=== PATIENT | female | born 1955 | race Caucasian/White ===

== ENCOUNTER 2017-06-23 14:57 | Emergency (ER) | payer MEDICARE ==
[~2017-06-23] VITALS: Ht 154.9 cm; Wt 60.8 kg
--- NOTE | ~2017-06-23 | CT4 ---
[facility] A Service of [facility] & [facility] RADIOLOGY TEXT RESULTS PATIENT: HILARIO SHARP LOCATION: [facility] : 53 UNIT #: [id number] AGE: [address]: Moncho Eaton MD SEX: F ORDER DR: [id number] [facility] [address] [place], [place] [address] [id number] MR#: [id number] Acc #: [id number] NAME: HILARIO SHARP : 1955 SEX: F STUDY DATE/TIME: 06/23/2017 UNIT: [facility] ROOM: STUDY DESCRIPTION: CT Abd and Pelv Wo Cont Attending Physician: Moncho Eaton M.D. Ordering Physician: Moncho Eaton M.D. Primary Care Physician: Rhonda Smalls M.D. MEDICAL IMAGING REPORT This report is preliminary unless electronic signature is present EXAM Abdomen and pelvis CT 06/23 at 1821 hours INDICATIONS Right-side low back pain with dysuria for 1 week. TECHNIQUE Axial images were obtained through the abdomen and pelvis without contrast. Multiplanar reformats were obtained. This CT exam was performed with one or more of the following radiation dose reduction techniques: automatic exposure control, adjustment of mA and/or kV according to patient size, and iterative reconstruction. COMPARISON STUDIES 08/30/2016. FINDINGS ABDOMEN: There is some dependent atelectasis in both lung bases. Gallbladder contains a small stone, in addition to some sludge. There is fatty infiltration of the liver. There is a stable 1.7-1.8 cm left adrenal adenoma. No renal or ureteral stones are seen. There is no hydronephrosis. The unenhanced solid organs are otherwise normal. No free fluid or adenopathy is seen. There is some atherosclerotic disease, but there is no aortic aneurysm. Unopacified GI tract is normal. PELVIS: The appendix is normal. There is sigmoid diverticulosis, but no diverticulitis is seen. The GI tract is otherwise unremarkable. There are no lower ureteral stones. The bladder is normal. Uterus is surgically absent. There is degenerative disease in the lumbar spine, particularly at L5-S1. STS. [facility] A Service of [facility] & [facility] RADIOLOGY TEXT RESULTS PATIENT: HILARIO SHARP LOCATION: [facility] #: [id number] : 53 UNIT #: [id number] AGE: [address]: Moncho Eaton MD SEX: F ORDER DR: IMPRESSION 1. No acute findings in the abdomen or pelvis. 2. No renal or ureteral stones. No hydronephrosis. 3. Small gallstone with some gallbladder sludge. 4. Fatty liver. 5. Stable left adrenal adenoma. 6. Sigmoid diverticulosis without diverticulitis. Normal appendix. 7. Hysterectomy. Dictated by... Efrain Soto Jr., M.D. THIS IS AN ELECTRONICALLY VERIFIED REPORT Efrain Soto Jr., M.D. at 06/24/2017 4:12 PM CLARISA/herminio TD: 06/23/2017 23:32 JOB #: [id number] MEDICAL IMAGING REPORT Page 1 of 1 COPY
[~2017-06-23 14:57] MED LIST: ACID REDUCER150 MG PO; ALEVE220 M1 PO; ALLOPURINOL300 MG PO; ATENOLOL PO; DESYREL100 MG; DOCUSATE SODIU100 MG; EXELON1 EACH TD; K-DUR20 ME1 DOB; KCL PO; LINZESS145 MCG PO; LIPITOR PO; MAXZIDE 75/50 T1 TAB PO; MEDROL PO; MEVACOR PO; MOBIC PO; NAPROXEN PO; TENORMIN50 MG PO; TRAZODONE PO; TRIAMTERENE-HC1 EACH PO; VICODIN 5/500 T1 TAB PO; ZANTAC PO; ZOLOFT PO; ZOLOFT100 MG PO; ZYLOPRIM PO
[2017-06-23 16:16] LABS: URINE SOURCE CLEAN CATCH
[2017-06-23 16:22] LABS: URINE APPEARANCE TURBID; URINE BILIRUBIN NEG (NEG); URINE BLOOD NEG (NEG); URINE COLOR YELLOW; URINE GLUCOSE NEG (NEG); URINE KETONE NEG (NEG); URINE LEUKOCYTE ESTERASE 1+ (NEG); URINE NITRATE NEG (NEG); URINE PROTEIN NEG (NEG); URINE SPECIFIC GRAVITY 1.014 (1.003-1.035)
[2017-06-23 16:27] LABS: CULTURE INDICATED? YES; URINE BACTERIA AUWI 1+ (NEGATIVE); URINE SQUAMOUS EPITHELIAL CELL FEW /[HPF]
[2017-06-23 18:09] LABS: BASOPHIL# 0.1 X10e3 (0-0.3); BASOPHIL% 0.5 % (0-2.5); EOSINOPHIL% 0.3 % (0.0-7.0); HEMATOCRIT 40.2 % (35.0-45.0); HEMOGLOBIN 13.7 gm/dL (12.0-16.0); LYMPHOCYTE# 2.7 X10e3 (1.0-3.5); LYMPHOCYTE% 19.1 % (17.0-45.0); MEAN CELL VOLUME 98.1 FL (83-96); MEAN CORPUSCULAR HEMOGLOBIN 33.4 PG (28-34); MEAN CORPUSCULAR HGB CONC 34.1 g/dL (30-36); MEAN PLATELET VOLUME 6.9 FL (6.5-11.5); MONOCYTE# 1.8 X10e3 (0-1.0); MONOCYTE% 12.6 % (3.0-12.0); NEUTROPHIL# 9.6 X10e3 (1.5-7.1); NEUTROPHIL% 67.5 % (40-75); PLATELET COUNT 191 X10e3 (140-420); RED CELL DISTRIBUTION WIDTH 14.2 % (11.0-15.5); WHITE BLOOD COUNT 14.2 X10e3 (4.0-10.5)
[2017-06-23 18:14] LABS: DIFF IND NO
[2017-06-23 18:36] LABS: ALBUMIN SERUM 3.6 g/dL (3.5-5.0); BILIRUBIN,TOTAL 0.4 mg/dL (0.2-2.0); CALCIUM SERUM 9.3 mg/dL (8.4-10.2); GLOM FILT RATE Estimated 59.9 mL/min (>60); POTASSIUM 3.1 mmol/L (3.5-5.1)
== END 2017-06-23 19:55 | disposition home or self-care (01) ==
LOC: CED 14:57
PROVIDERS: Emergency Medicine
DX: R10.9 Unspecified abdominal pain (principal); R30.0 Dysuria; Z91.041 Radiographic dye allergy status; E11.9 Type 2 diabetes mellitus without complications; I10 Essential (primary) hypertension; Z90.710 Acquired absence of both cervix and uterus; F17.200 Nicotine dependence, unspecified, uncomplicated
CPT/HCPCS: 36415; 74176; 80053; 81003; 83690; 85025; 87086; 96365; 96375; 99284; J0696; J2270

== ENCOUNTER 2017-06-27 01:33 | Inpatient (IN) | payer MEDICARE ==
[~2017-06-27] VITALS: Ht 154.9 cm; Wt 60.8 kg
--- NOTE | ~2017-06-27 | CO ---
Unit #: [id number] #: [id number] Patient: HILARIO SHARP [id number] [facility] [address] [place], [place] [address] [id number] I MR#: [id number] NAME: HILARIO SHARP ROOM: 230 Age: 61 Sex: F Admission Date: 06/27/2017 : 1955 Attending Physician: Josef Sumner M.D. Primary Care Physician: Rhonda Smalls M.D. Consultation Date: 07/03/2017 CONSULTATION REPORT DISCUSSION Miss Hilario Sharp is a 61-year-old female seen on 07/03/17 at [facility] in room 230, bed 1. Patient dressed casually, hygiene and grooming fair. Patient and her were at the bedside. The patient's also reported the patient is doing much better. Improved memory, depression, anxiety; able to talk more coherently, voices some paranoia and anxiety residual symptoms; denies any suicidal or homicidal ideation. REVIEW OF SYSTEMS Unremarkable. PHYSICAL EXAMINATION VITAL SIGNS: Temperature 98.7, pulse 81, respirations 20, blood pressure 127/74, oxygen saturation 94%. MENTAL STATUS EXAMINATION General appearance, patient dressed casually in hospital attire. Attention span and concentration fair. Speech slow in volume and rate but coherent. Oriented in time, place and person. Mood and affect sad, dysphoric. Thought process coherent. Thought content, the patient denied any thoughts of harming self or others but some paranoia. Recent and remote memory fair. Language, fair. Fund of knowledge fair. Insight and judgment fair to slightly impaired. DIAGNOSES PSYCHIATRIC: Major depressive disorder, recurrent, severe, with psychotic features. ASSESSMENT AND PLAN 1. Supportive psychotherapy and psychoeducation provided to patient. 2. Educated about benefits and side effects of medication and course and prognosis of illness. 3. Advised to continue with the current combination of medication and make further adjustment of medication if needed. Please feel free to call if any question. Telephone number [phone]. Dictated by... Unit #: [id number] #: [id number] Patient: HILARIO SHARP Denny Win/aron TD: 07/03/2017 17:49 JOB #: [id number] CONSULTATION REPORT Page 1 of 1 X Agustín Hu MD CONSULTATION REPORT
--- NOTE | ~2017-06-27 | CO ---
Unit #: [id number] #: [id number] Patient: HILARIO SHARP [id number] [facility] [address] [place], [place] [address] [id number] I MR#: [id number] NAME: HILARIO SHARP ROOM: 230 Age: 61 Sex: F Admission Date: 06/27/2017 : 1955 Attending Physician: Josef Sumner M.D. Primary Care Physician: Rhonda Smalls M.D. Consultation Date: 06/30/2017 CONSULTATION REPORT REASON FOR CONSULTATION Followup discussion. HISTORY OF PRESENT ILLNESS Ms. Hilario Sharp is a 61-year-old white female, seen in room 230, bed [address] [facility]. The patient was sitting comfortably in chair, staring at her food, very confused, guarded and paranoid, able to answer some questions. The patient's was sitting at the bedside. The patient was dressed casually. The patient is taking long time to answer question, seems anxious, nervous, guarded, paranoid, delusional. The patient denied any thoughts of harming self or others. The patient did not show any agitation, but anxiety, paranoia. REVIEW OF SYSTEMS Complete review of systems is unremarkable except as mentioned above. MENTAL STATUS EXAMINATION VITAL SIGNS: Temperature 98.0, pulse 84, respirations 18, blood pressure 123/62, oxygen saturation 97%. GENERAL APPEARANCE: The patient is dressed casually in hospital attire, sitting comfortably in chair, seem anxious, nervous, guarded and paranoid. The patient's attention span and concentration, fair to poor. Speech, slow in volume with long pauses. Oriented in self and place. Mood and affect; sad, dysphoric, flat. Thought process, circumstantial. Thought content; guarded, paranoid, delusional. Recent and remote memory, fair to slightly impaired. Language, fair. Fund of knowledge, fair. Insight and judgment, fair to slightly impaired. DIAGNOSES Psychiatric: Major depressive disorder, recurrent, severe, with psychotic feature, F33.3; psychosis, not otherwise specified, F29.0; rule out major neurocognitive disorder secondary to Alzheimer disease without behavioral disturbances, F02.80. ASSESSMENT/PLAN 1. Supportive psychotherapy and psychoeducation were provided to the patient. 2. Educated about benefits and side effects of medication and course and prognosis of illness. 3. Advised to continue with current medication with a plan to add Haldol 2 mg b.i.d. and Remeron 15 mg at bedtime. Decrease trazodone to 100 mg at bedtime as trazodone and Remeron will both cause sedation. Advise one time dose of Haldol 2 mg and Ativan 0.5 mg now. They will continue to follow. Please feel free to call if any questions. Telephone number is Unit #: [id number] #: [id number] Patient: HILARIO SHARP [phone]. Dictated by... Denny Win/mabel TD: 07/03/2017 00:39 JOB #: [id number] CONSULTATION REPORT Page 1 of 1 X Agustín Hu MD X CONSULTATION REPORT
--- NOTE | ~2017-06-27 | CO ---
Unit #: [id number] #: [id number] Patient: HILARIO SHARP [id number] [address] [place], [place] [address] [id number] I MR#: [id number] NAME: HILAROI SHARP ROOM: 230 Age: 61 Sex: F Admission Date: 06/27/2017 : 1955 Attending Physician: Josef Sumner M.D. Primary Care Physician: Rhonda Smalls M.D. Consultation Date: 07/01/2017 CONSULTATION REPORT REASON FOR CONSULTATION Followup. DISCUSSION Ms. Hilario Sharp is a 61-year-old white female, seen in room 230, bed 1 on 07/01/2017. The patient dressed casually in hospital attire, sitting comfortably in chair, and made good eye contact. Reports feeling better. Able to carry out a spontaneous conversation, alert, oriented. Affect bright, smiling. Decrease in anxiety. No side effects from medication. The patient's vital signs; temperature 98.0, heart rate 78, respirations 16, blood pressure 125/70, and oxygen saturation 98%. The patient denied any current suicidal or homicidal ideation. REVIEW OF SYSTEMS Complete review of system is unremarkable. MENTAL STATUS EXAMINATION General appearance, the patient dressed casually. Attention span and concentration, fair. Speech, regular rate and coherent. Oriented in time, place, and person. Mood and affect were brighter. Thought process, coherent. Thought content, the patient denied any thoughts of harming self or others, but somewhat anxious and nervous. Denied any hallucination. Recent and remote memory, fair. Language, intact. Fund of knowledge, fair. Insight and judgment, fair to slightly impaired. DIAGNOSES Psychiatric: Major depressive disorder, recurrent, severe, F33.2; psychosis, F29.0, resolved; considering diagnosis of dementia versus pseudodementia. ASSESSMENT/PLAN 1. Supportive psychotherapy and psychoeducation provided to the patient. 2. Educated about benefits and side effects of medication and course and prognosis of illness. 3. Advised to continue with current medication. We will continue to follow and make further adjustment of medication if needed. Please feel free to call if any questions, telephone #[phone]. Dictated by... Agustín Hu M.D. [facility]/mabel Unit #: [id number] #: [id number] Patient: HILARIO SHARP TD: 07/03/2017 00:24 JOB #: [id number] CONSULTATION REPORT Page 1 of 1 X Agustín Hu MD CONSULTATION REPORT
--- NOTE | ~2017-06-27 | CR72 ---
[facility] A Service of [facility] & [facility] RADIOLOGY TEXT RESULTS PATIENT: HILARIO SHARP LOCATION: [facility] : 53 UNIT #: [id number] AGE: [address]: Christie Blackmon MD SEX: F ORDER DR: [id number] [facility] [address] [place], [place] [address] [id number] I MR#: [id number] Acc #: [id number] NAME: HILARIO SHARP : 1955 SEX: F STUDY DATE/TIME: 06/27/2017 2:30 UNIT: CEDOF ROOM: 83083 STUDY DESCRIPTION: CR Chest Single View Portable Attending Physician: Christie Blackmon M.D. Ordering Physician: Bro Vernon M.D. Primary Care Physician: Rhonda Smalls M.D. MEDICAL IMAGING REPORT This report is preliminary unless electronic signature is present EXAM Chest x-ray, 06/27/2017. HISTORY 61-year-old female in the ED with a 1-day history of shortness of air. Confusion/mental status changes. TECHNIQUE AP portable upright chest x-ray. FINDINGS Shallow lung expansion. The lungs appear clear. No visible pulmonary infiltrate or pleural effusion. Heart size is within normal limits. No change since 06/09/2012. IMPRESSION No active disease. Dictated by... Fareed Interiano M.D. THIS IS AN ELECTRONICALLY VERIFIED REPORT Fareed Interiano M.D. at 06/27/2017 10:00 PM IONW/lee TD: 06/27/2017 12:32 JOB #: [id number] MEDICAL IMAGING REPORT Page 1 of 1 COPY
--- NOTE | ~2017-06-27 | DS ---
Unit #: [id number] #: [id number] Patient: HILARIO SHARP [id number] [address] [address] [id number] I MR#: [id number] NAME: HILARIO SHARP ROOM: 230 Age: 61 Sex: F Admission Date: 06/27/2017 : 1955 Discharge Date: 07/04/2017 Attending Physician: Josef Sumner M.D. Primary Care Physician: Rhonda Smalls M.D. DISCHARGE SUMMARY PERTINENT HISTORY AND HOSPITAL COURSE The patient is a 61-year-old woman, who presented with symptoms of increasing agitation and confusion, which progressively worsened over the past three weeks while at home. On the day of admission, the patient apparently tried to walk out of the house, got into an argument with her son and . The police were called due to the agitation and combativeness. During her admission, the patient had a psychiatry consultation and her medication dosages were adjusted. Following which, the patient's agitation resolved. During her admission, the patient also was noted to have a low potassium. After potassium replacement, her potassium level was I normal range and remained in normal range. DISCHARGE DIAGNOSES 1. Acute agitation, confusion, and combative behavior. 2. Dementia. 3. Hypokalemia. DISCHARGE MEDICATIONS 1. Remeron 15 mg p.o. at bedtime. 2. Trazodone 100 mg p.o. at bedtime. 3. Haloperidol 2 mg p.o. twice daily. 4. Atenolol 25 mg p.o. once daily. 5. Lovastatin 40 mg p.o. at bedtime. 6. Ranitidine 150 mg p.o. twice daily. 7. Allopurinol 300 mg p.o. twice daily. DISCHARGE INSTRUCTIONS 1. The patient will be discharged home with home health services. 2. The patient is to follow up with primary care physician. Dictated by... Denny Wolf/giuliana TD: 07/05/2017 14:37 JOB #: [id number] Unit #: [id number] #: [id number] Patient: HILARIO SHARP DISCHARGE SUMMARY Page 1 of 1 X X DISCHARGE SUMMARY
--- NOTE | ~2017-06-27 | CT71 ---
[facility] A Service of [facility] RADIOLOGY TEXT RESULTS PATIENT: HILARIO SHARP LOCATION: [facility] 230-01 : 53 UNIT #: [id number] AGE: [address]: Christie Blackmon MD SEX: F ORDER DR: [id number] [place] [id number] [facility]. [place], [place] [address] [id number] I MR#: [id number] Acc #: [id number] NAME: HILARIO SHARP : 1955 SEX: F STUDY DATE/TIME: 06/27/2017 3:45 UNIT: CEDOF ROOM: 92661 STUDY DESCRIPTION: CT Head Wo Contrast Attending Physician: Christie Blackmon M.D. Ordering Physician: Bro Vernon M.D. Primary Care Physician: Rhonda Smalls M.D. MEDICAL IMAGING REPORT This report is preliminary unless electronic signature is present EXAM CT head, noncontrast, 06/27/2017. HISTORY 61-year-old female in the ED with confusion/mental status changes beginning earlier today. TECHNIQUE CT examination of the head was performed without IV contrast. This CT exam was performed with one or more of the following radiation dose reduction techniques: automatic exposure control, adjustment of mA and/or kV according to patient size, and iterative reconstruction. FINDINGS No acute intracranial abnormality is identified. Moderate patchy low-attenuation white matter changes are nonspecific, but likely related to chronic small vessel disease. Old lacunar infarct in the left thalamus. These findings are unchanged since 06/09/2012. No evidence of intracranial hemorrhage, mass, mass effect, acute cerebral edema or hydrocephalus. IMPRESSION 1. No acute intracranial abnormality. 2. Stable diffuse chronic changes as noted above. 3. No significant change since 06/09/2012. Dictated by... Fareed Interiano M.D. THIS IS AN ELECTRONICALLY VERIFIED REPORT Fareed Interiano M.D. at 06/27/2017 10:01 PM [facility] A Service of [facility] RADIOLOGY TEXT RESULTS PATIENT: HILARIO SHARP LOCATION: [facility] 230-01 : 53 UNIT #: [id number] AGE: [address]: Christie Blackmon MD SEX: F ORDER DR: Juan Carlos TD: 06/27/2017 12:34 JOB #: [id number] MEDICAL IMAGING REPORT Page 1 of 1 COPY
--- NOTE | ~2017-06-27 | HP ---
Unit #: [id number] #: [id number] Patient: HILARIO SHARP [id number] [address] [place], [place] [address] [id number] I MR#: [id number] NAME: HILARIO SHARP ROOM: 230 Age: 61 Sex: F Admission Date: 06/27/2017 : 1955 Attending Physician: Christie Blackmon M.D. Primary Care Physician: Rhonda Smalls M.D. HISTORY AND PHYSICAL HISTORY OF PRESENT ILLNESS The patient is a 61-year-old woman who developed symptoms of increasing agitation and confusion which have progressively worsened over the past three weeks. Last night, the patient tried to walk out of the house in the middle of the night. The patient's called the police, and the patient was subsequently brought to the emergency room where she was given Geodon for her agitation. PAST MEDICAL HISTORY 1. Hypertension. 2. Hyperlipidemia. 3. Gastroesophageal reflux. 4. Insomnia. 5. Depression. 6. Gout. ALLERGIES IV dye. MEDICATIONS 1. Atenolol 50 mg daily. 2. Ranitidine 300 mg p.o. b.i.d. 3. Trazodone 150 mg at bedtime. 4. Zoloft 100 mg daily. 5. Allopurinol 300 mg daily. 6. Lovastatin 20 mg daily. 7. Meloxicam 7.5 mg daily. SOCIAL HISTORY Smokes two packs a day. No alcohol or drug use. FAMILY HISTORY Father of colon cancer. Sister had breast cancer. REVIEW OF SYSTEMS As per HPI. The rest of the review of systems is negative. PHYSICAL EXAMINATION GENERAL: An elderly-appearing woman in no acute distress. HEENT: Normocephalic and atraumatic. Extraocular movements intact. Pupils equal, round, and reactive. Nose and throat are within normal limits. NECK: Supple. No JVD. CARDIAC: S1 and S2, regular rate and rhythm. Unit #: [id number] #: [id number] Patient: HILARIO SHARP LUNGS: Clear to auscultation. ABDOMEN: Soft and nondistended. EXTREMITIES: No cyanosis or edema. CENTRAL NERVOUS SYSTEM: Memory impairment which is not new according to . No acute focal motor deficits. DIAGNOSTIC STUDIES LABORATORY: Urine demonstrates 10-25 white cells. IMAGING: CT scan of the head, impression: No acute intracranial abnormality. Stable chronic small vessel disease. ASSESSMENT AND PLAN 1. Dementia with associated agitation and psychosis. Increase home Risperdal dosage to twice daily. Continue home antidepressant medications Zoloft and trazodone. 2. Urinary tract infection and pyelocystitis: Order empiric IV Rocephin once daily. Follow up urine cultures. 1. Dictated by Denny Wolf TD: 06/27/2017 17:18 JOB #: [id number] HISTORY AND PHYSICAL Page 1 of 1 X X HISTORY AND PHYSICAL
--- NOTE | ~2017-06-27 | CO ---
Unit #: [id number] #: [id number] Patient: HILARIO SHARP [id number] [address] [place], [place] [address] [id number] I MR#: [id number] NAME: HILARIO SHARP ROOM: 230 Age: 61 Sex: F Admission Date: 06/27/2017 : 1955 Attending Physician: Josef Sumner M.D. Primary Care Physician: Rhonda Smalls M.D. Consultation Date: 06/29/2017 CONSULTATION REPORT REASON FOR CONSULTATION Followup discussion. HISTORY OF PRESENT ILLNESS Ms. Hilario Sharp is a 61-year-old white female, seen in room 230, bed 1, on 06/29/2017. The patient was staring at the wall, refusing to eat her lunch, anxious, nervous, sad, and depressed. The patient is somewhat guarded, flat affect. The patient has a history of depression and diagnosis of dementia. PAST PSYCHIATRIC HISTORY Remarkable for history of dementia and history of depression. PAST MEDICAL HISTORY History of hypertension, hyperlipidemia, gastroesophageal reflux disease, insomnia, depression, gout. MEDICATION HISTORY The patient is on atenolol, ranitidine, trazodone, Zoloft, allopurinol, lovastatin, meloxicam. The patient also takes Exelon patch at home. FAMILY HISTORY AND SOCIAL HISTORY The patient has a good support system from . No history of abuse. REVIEW OF SYSTEMS Complete review of systems is unremarkable. MENTAL STATUS EXAMINATION Vital signs; temperature 97.4, pulse 74, respirations 16, blood pressure 128/74, oxygen saturation 100%. General appearance; the patient dressed casually in hospital attire. Attention span and concentration, poor. Speech, slow in volume with long pauses. Orientation in self. Mood and affect, labile. Thought process, circumstantial. Thought content, guarded, paranoid, but denied any thoughts of harming self or others. Recent and remote memory, poor. Language, intact, fair. Fund of knowledge, poor. Insight and judgment, impaired. 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 ASSESSMENT/PLAN 1. Supportive psychotherapy and psychoeducation were provided to patient Unit #: [id number] #: [id number] Patient: HILARIO SHARP and family. 2. Educated about benefits and side effects to medication and course and prognosis of illness. 3. Advised to continue with Risperdal 0.5 mg b.i.d. if needed. Consider increasing the dosage. Continue with Desyrel. If needed, consider cutting back on the medication. If no improvement, consider haloperidol. We are also recommending one-to-one monitoring. If needed, consider further adjustment of medication. Please feel free to call if any question. Telephone number is [phone]. Dictated by... Denny Win/mabel TD: 07/03/2017 01:15 JOB #: [id number] CONSULTATION REPORT Page 1 of 1 X Agustín Hu MD X CONSULTATION REPORT
--- NOTE | ~2017-06-27 | CO ---
Unit #: [id number] #: [id number] Patient: HILARIO SHARP [id number] [facility] [address] [facility]. [place], [place] [address] [id number] I MR#: [id number] NAME: HILARIO SHARP ROOM: 230 Age: 61 Sex: F Admission Date: 06/27/2017 : 1955 Attending Physician: Josef Sumner M.D. Primary Care Physician: Rhonda Smalls M.D. Consultation Date: 07/02/2017 CONSULTATION REPORT REASON FOR CONSULTATION Followup. DISCUSSION Ms. Hilario Sharp is a 61-year-old white female seen in room 230, bed 1 on 07/02/17 at [facility]. The patient was initially diagnosed with dementia but also having severe depressive symptoms, responding well to the medication. Seems more alert, awake, improved memory, depression and anxiety. The patient reports still having periods of paranoia. The patient is tolerating medication fairly well. No side effects of medications. Denied any suicidal or homicidal ideation. The patient is currently on Remeron 15 mg at bedtime, Desyrel 100 mg at bedtime, haloperidol 2 mg b.i.d., Lipitor 10 mg at bedtime. The patient is also on Risperdal 0.5 mg b.i.d. No side effects of medications. The patient's vital signs - 97.5, 76, 16, blood pressure 144/86, oxygen saturation 95%. REVIEW OF SYSTEMS Unremarkable. MENTAL STATUS EXAMINATION General appearance - Patient is dressed casually in hospital attire, lying comfortably in bed. Attention span, concentration - Fair. Speech - Low in volume and rate. Oriented to place and person. Mood and affect - Sad, dysphoric, anxious. Thought process - Coherent. Thought content - Guarded, somewhat paranoid. Concerned about a person on the board and feeling uncomfortable about that person coming into the room. The patient did not give any reason. Recent and remote memory - Fair. Language - Intact. Fund of knowledge - Fair. Insight and judgment - Fair to slightly impaired. DIAGNOSIS PSYCHIATRIC: Major depressive disorder, recurrent, severe with psychotic feature, F33.3; psychosis, NOS, F29.0. ASSESSMENT AND PLAN 1. Supportive psychotherapy and psychoeducation provided to the patient. 2. Educated about benefits and side effects of medication and course and prognosis of illness. 3. Advised to continue with current medication and make further adjustments in medication if needed. Please feel free to call with any questions, telephone number . Unit #: [id number] #: [id number] Patient: HILARIO SHARP Dictated by... Denny Win/isa TD: 07/03/2017 15:21 JOB #: [id number] CONSULTATION REPORT Page 1 of 1 X Agustín Hu MD X CONSULTATION REPORT
--- NOTE | ~2017-06-27 | EKG ---
PATIENT: HILARIO SHARP UNIT #: [id number] Ventricular Rate: 101 BPM Atrial Rate: 101 BPM P-R Interval: 148 ms QRS Duration: 90 ms Q-T Interval: 368 ms QTC Calculation(Bezet): 477 ms P [place]: 50 degrees Calculated R [place]: 37 degrees Calculated T [place]: 47 degrees Diagnosis Line: Sinus tachycardia Diagnosis Line: Nonspecific ST and T wave abnormality Diagnosis Line: Abnormal ECG Diagnosis Line: When compared with ECG of 27-JUN-2017 03:00, Diagnosis Line: (unconfirmed) Diagnosis Line: No significant change was found Diagnosis Line: Confirmed by ADEN FELDMAN MD ([id number]) on 06/27/2017 Diagnosis Line: 11:56:55 PM INTERPRETING MD: FRANCIA QUACH
--- NOTE | ~2017-06-27 | CO ---
Unit #: [id number] #: [id number] Patient: HILARIO SHARP [id number] [facility] [address] [place], [place] [address] [id number] MR#: [id number] NAME: HILARIO SHARP ROOM: 230 Age: 61 Sex: F Admission Date: 06/27/2017 : 1955 Attending Physician: Josef Sumner M.D. Primary Care Physician: Rhonda Smalls M.D. Consultation Date: 07/04/2017 CONSULTATION REPORT REASON FOR CONSULTATION Depression and psychosis followup. HISTORY OF PRESENT ILLNESS Ms. Martinez is a 61-year-old white female, seen in room 230, bed 1 on 07/04/2017 at [facility]. The patient reports that she is still having symptoms of paranoia, compliant with medication but reports mood is getting better. The patient was able to answer questions coherently, dressed casually in hospital attire, lying comfortably in bed. The patient reports making a lot of progress. Vital signs; temperature 98.9, heart rate 94, respiratory rate 18, blood pressure 128/75, and oxygen saturation 96%. The patient currently denied any suicidal or homicidal ideation. Denied any auditory or visual hallucination, but still somewhat paranoia. REVIEW OF SYSTEMS Complete review of systems unremarkable. MENTAL STATUS EXAMINATION General appearance; the patient dressed casually, lying comfortably in bed. Attention span and concentration, fair. Speech, regular rate and coherent. Oriented in time, place, and person. Mood and affect, sad and dysphoric. Thought process, coherent. Thought content, the patient denied any thoughts of harming self or others, but somewhat guarded. Recent and remote memory, fair. Language, intact. Fund of knowledge, fair to slightly impaired. DIAGNOSES 1. Major depressive disorder, recurrent, severe, F33.2. 2. Psychosis, not otherwise specified, F29.0. ASSESSMENT/PLAN 1. Supportive psychotherapy and psychoeducation provided to the patient. 2. Educated about benefits and side effects of medication and course and prognosis of illness. 3. Advised to continue with current medication. If needed, consider further adjustment of medication. We will continue to follow. Please feel free to call if any questions, telephone #[phone]. Dictated by... Agustín Hu M.D. [facility]/mabel Unit #: [id number] #: [id number] Patient: HILARIO SHARP TD: 07/05/2017 08:33 JOB #: [id number] CONSULTATION REPORT Page 1 of 1 X Agustín Hu MD CONSULTATION REPORT
--- NOTE | ~2017-06-27 | DS ---
Unit #: [id number] #: [id number] Patient: HILARIO SHARP [id number] [address] [place], [place] [address] [id number] MR#: [id number] NAME: HILARIO SHARP ROOM: 230 Age: 61 Sex: F Admission Date: 06/27/2017 : 1955 Discharge Date: 06/29/2017 Attending Physician: Josef Sumner M.D. Primary Care Physician: Rhonda Smalls M.D. DISCHARGE SUMMARY PERTINENT HISTORY AND HOSPITAL COURSE The patient is a 61-year-old woman with a history of significant for dementia, who presented with symptoms of increasing agitation and confusion. During her admission CAT scan of the head demonstrated no acute abnormality. Urinalysis demonstrated no acute infection. Patient was noted to have hypokalemia with a potassium of 2.9. This was replaced and the patient's potassium on discharge is 4.0. During her admission, her medications were adjusted. Her Zoloft medication was discontinued. She was continued on trazodone 200 mg at bedtime and her Risperdal 0.5 mg at bedtime was adjusted to twice daily. The patient had a psychiatry consultation and Exelon patch was ordered. Also on presentation the patient was noted to be bradycardic with a heart rate of 62. Her atenolol dose was adjusted from atenolol 50 mg twice daily to atenolol 25 mg p.o. once daily. At discharge the patient's vitals are stable. Her heart rate is 83 per minute. Blood pressure is 116/71. The patient is not agitated. The patient will be discharged home. DISCHARGE MEDICATIONS 1. Trazodone 200 mg p.o. at bedtime. 2. Risperidone 0.5 mg p.o. twice daily. 3. Atenolol 25 mg p.o. once daily. 4. Lovastatin 40 mg p.o. at bedtime. 5. Ranitidine 150 mg p.o. b.i.d. 6. Allopurinol 300 mg p.o. b.i.d. 7. Exelon 4.6 mg patch change q. 24 hour. DISCHARGE INSTRUCTION The patient should followup with primary care physician. Dictated by... Josef V Denny Sumner/lexi TD: 06/30/2017 11:52 JOB #: [id number] Unit #: [id number] #: [id number] Patient: HILARIO SHARP DISCHARGE SUMMARY Page 1 of 1 X X DISCHARGE SUMMARY
[2017-06-27 03:29] LABS: BASOPHIL% 0.3 % (0-2.5); DIFF IND NO; EOSINOPHIL# 0.1 X10e3 (0-0.7); EOSINOPHIL% 0.7 % (0.0-7.0); HEMATOCRIT 39.9 % (35.0-45.0); HEMOGLOBIN 13.8 gm/dL (12.0-16.0); LYMPHOCYTE# 1.9 X10e3 (1.0-3.5); LYMPHOCYTE% 17.2 % (17.0-45.0); MEAN CELL VOLUME 97.9 FL (83-96); MEAN CORPUSCULAR HEMOGLOBIN 33.9 PG (28-34); MEAN CORPUSCULAR HGB CONC 34.6 g/dL (30-36); MONOCYTE# 1.2 X10e3 (0-1.0); MONOCYTE% 10.4 % (3.0-12.0); NEUTROPHIL# 8.1 X10e3 (1.5-7.1); NEUTROPHIL% 71.4 % (40-75); PLATELET COUNT 255 X10e3 (140-420); RED BLOOD COUNT 4.08 X10e (3.90-5.30); RED CELL DISTRIBUTION WIDTH 13.8 % (11.0-15.5); WHITE BLOOD COUNT 11.3 X10e3 (4.0-10.5)
[2017-06-27 03:43] LABS: PARTIAL THROMBOPLASTIN TIME 28.5 SECONDS (23.5-31.3); PROTHROMBIN TIME (PATIENT) 10.9 SECONDS (10.0-11.7)
[2017-06-27 04:08] LABS: ALBUMIN SERUM 3.9 g/dL (3.5-5.0); ALKALINE PHOSPHATASE 89 U/L (32-92); ALT (SGPT) 17 U/L (10-40); AST (SGOT) 21 U/L (10-42); BILIRUBIN,TOTAL 0.3 mg/dL (0.2-2.0); BLOOD UREA NITROGEN 18 mg/dL (9-23); BUN/CREATININE RATIO 25.71; CALCIUM SERUM 9.9 mg/dL (8.4-10.2); CARBON DIOXIDE 33 mmol/L (22-31); CHLORIDE 93 mmol/L (100-111); CREATININE SERUM 0.7 mg/dL (0.6-1.4); GLOM FILT RATE Estimated 92.2 mL/min (>60); GLUCOSE FASTING 153 mg/dL (70-110); SODIUM 138 mmol/L (135-145)
[2017-06-27 04:09] LABS: ALCOHOL BLOOD <5 mg/dL (0); BILIRUBIN, DIRECT <0.1 mg/dL (0.0-0.2); BILIRUBIN,INDIRECT 0.2 mg/dL (0.0-0.9); POTASSIUM 2.9 mmol/L (3.5-5.1)
[2017-06-27 05:21] LABS: URINE APPEARANCE SL HAZY; URINE BILIRUBIN NEG (NEG); URINE BLOOD NEG (NEG); URINE COLOR YELLOW; URINE GLUCOSE NORM (NORM); URINE KETONE NEG (NEG); URINE LEUKOCYTE ESTERASE NEG (NEG); URINE NITRATE NEG (NEG); URINE PROTEIN NEG (NEG); URINE SPECIFIC GRAVITY 1.015 (1.003-1.035); URINE UROBILINOGEN NORM (NORM)
[2017-06-27 05:22] LABS: CULTURE INDICATED? NO; URINE SOURCE CATH
[2017-06-27 05:29] LABS: AMPHETAMINE POS (NEG); BARBITURATES NEG (NEG); BENZODIAZEPINES NEG (NEG); COCAINE NEG (NEG); MARIJUANA NEG (NEG); OPIATES POS (NEG); TRICYCLIC ANTIDEPRESSANTS NEG (NEG); U METHADONE NEG (NEG)
[2017-06-27 08:18] LABS: THYROID STIMULATING HORMONE 1.62 uIU/ml (0.34-5.60)
[2017-06-27 08:25] LABS: FREE THYROXIN (T4) 1.03 ng/dL (0.58-1.64)
[2017-06-27] MEDS ORDERED: MACROBID100 M1 PO (12:12)
[2017-06-27] MEDS ORDERED: ALLOPURINOL300 MG PO (12:12)
[2017-06-27] MEDS ORDERED: HYDROCODON-ACE1 EAC7 PO (12:13)
[2017-06-27] MEDS ORDERED: TRAZODONE HCL100 MG PO (12:15)
[2017-06-27] MEDS ORDERED: RISPERDAL0.5 MG PO (12:15)
[2017-06-27] MEDS ORDERED: MELOXICAM7.5 MG PO (12:16)
[2017-06-27] MEDS ORDERED: RANITIDINE HCL150 M1 PO (12:17)
[2017-06-27] MEDS ORDERED: MEVACOR PO (12:18)
[2017-06-27] MEDS ORDERED: ATENOLOL50 MG PO (12:18)
[2017-06-27] MEDS ORDERED: ZOLOFT100 MG PO (12:19)
[2017-06-28 06:19] LABS: MAGNESIUM 1.9 mg/dL (1.6-3.0); POTASSIUM 3.4 mmol/L (3.5-5.1)
[2017-06-29] MEDS ORDERED: EXELON4.6 MG EXT (14:47)
[2017-06-30 08:15] LABS: POTASSIUM 3.7 mmol/L (3.5-5.1)
[2017-07-01 06:54] LABS: MAGNESIUM 1.9 mg/dL (1.6-3.0); POTASSIUM 3.6 mmol/L (3.5-5.1)
[2017-07-02 06:10] LABS: HEMATOCRIT 35.9 % (35.0-45.0); HEMOGLOBIN 11.8 gm/dL (12.0-16.0); MEAN CELL VOLUME 100.3 FL (83-96); MEAN CORPUSCULAR HEMOGLOBIN 32.9 PG (28-34); MEAN CORPUSCULAR HGB CONC 32.8 g/dL (30-36); RED BLOOD COUNT 3.58 X10e (3.90-5.30); RED CELL DISTRIBUTION WIDTH 14.2 % (11.0-15.5); WHITE BLOOD COUNT 9.7 X10e3 (4.0-10.5)
[2017-07-02 06:20] LABS: PROTHROMBIN TIME (PATIENT) 10.8 SECONDS (10.0-11.7)
[2017-07-02 06:38] LABS: BUN/CREATININE RATIO 16.25; CALCIUM SERUM 8.6 mg/dL (8.4-10.2); CREATININE SERUM 0.8 mg/dL (0.6-1.4); GLOM FILT RATE Estimated 78.5 mL/min (>60); POTASSIUM 4.1 mmol/L (3.5-5.1)
[2017-07-03 05:49] LABS: MAGNESIUM 1.9 mg/dL (1.6-3.0); POTASSIUM 4.3 mmol/L (3.5-5.1)
[2017-07-04 07:31] LABS: POTASSIUM 4.5 mmol/L (3.5-5.1)
[2017-07-04] MEDS ORDERED: REMERON15 MG PO (10:33)
[2017-07-04] MEDS ORDERED: HALDOL PO (10:33)
== END 2017-07-04 16:44 | disposition home health service (06) | DRG 884 ==
LOC: CED 01:33 → CEDOF 06:55 → CED 06:55 → CEDOF 07:30 → CED 07:30 → CEDOF 12:57 → C2A 12:57
PROVIDERS: Emergency Medicine; Family Medicine; Internal Medicine
DX: F03.91 Unspecified dementia, unspecified severity, with behavioral disturbance (principal); G93.40 Encephalopathy, unspecified; F33.3 Major depressive disorder, recurrent, severe with psychotic symptoms; E87.6 Hypokalemia; F17.200 Nicotine dependence, unspecified, uncomplicated; F29 Unspecified psychosis not due to a substance or known physiological condition; F41.9 Anxiety disorder, unspecified; Z91.041 Radiographic dye allergy status; Z80.3 Family history of malignant neoplasm of breast; Z80.0 Family history of malignant neoplasm of digestive organs; I10 Essential (primary) hypertension; E78.5 Hyperlipidemia, unspecified; F10.10 Alcohol abuse, uncomplicated
CPT/HCPCS: 36415; 70450; 71010; 80048; 80076; 80307; 81003; 82140; 82607; 82947; 83735; 84132; 84439; 84443; 85025; 85027; 85610; 85730; 93005; 97116; 97162; 97530; 99285; G0480; G8978-GP; G8979-GP; G8980-GP; J0696; J1650; J3475; J3486